=== PATIENT | female | born 1995 | race Caucasian/White ===

== ENCOUNTER 2017-04-29 15:35 | Outpatient (CLI) | payer MEDICAID ==
[~2017-04-29] VITALS: Ht 157.5 cm; Wt 61.8 kg
[2017-04-29] MEDS ORDERED: PRENAT PO (15:51)
[2017-04-29] MEDS ORDERED: FER325 PO (15:51)
[2017-04-29 15:52] VITALS: BP 107/65; PULSE 117; RESP 18; Ht 157.5 cm; Wt 61.8 kg
[2017-04-29 17:27] LABS: ADD SCAN DIFF NO
--- NOTE | 2017-04-29 17:30 | RADRPT ---
PROCEDURE: US biophysical profile. CLINICAL INDICATION: Contractions at 38 weeks gestational age. TECHNIQUE: Multiple sonographic images of the uterus were obtained. The images were revi ewed on a PACS workstation. COMPARISON: No prior studies are available for comparison. FINDINGS: There is a single live intrauterine gestation. heart rate is 171 beats per minute. The position is cephalic. The placenta is fundal grade III with no abruption or previa. The CRISTIAN is 9.8 cm. (Normal = 5-20 cm.) Breathing Movement: 2 Gross Body Movement: 2 Tone: 2 Qualitative Amniotic Fluid Volume: 2 TOTAL: 8 IMPRESSION: 1. The biophysical score is 8/8. RPTAT: QQ .Fredo Moeller MD, Date Time Electronically viewed and signed by .Fredo Moeller MD, on 04/29/2017 17:29 .R/
[2017-04-29 17:35] LABS: BASOPHILS % 0.3 % (0.0-2.0); EOSINOPHILS % 0.5 % (0.0-7.0); HEMOGLOBIN 12.6 g/dl (12.0-16.0); LYMPHOCYTES # 1.5 10^3/ul (0.8-2.9); LYMPHOCYTES % 19.1 % (18.0-55.0); MEAN CORPUSCULAR HEMOGLOBIN 30.9 pg (29.0-33.0); MEAN CORPUSCULAR VOLUME 88.2 fl (72.0-104.0); MEAN PLATELET VOLUME 9.8 fl (7.4-10.4); MONOCYTE # 0.5 10^3/ul (0.3-0.9); NEUTROPHIL # 5.9 10^3/ul (1.6-7.5); NEUTROPHILS % 73.6 % (30.0-74.0); PLATELET COUNT 198 10^3/UL (140-415); RED BLOOD COUNT 4.08 10^6/ul (4.20-5.40); RED CELL DISTRIBUTION WIDTH 15.9 % (11.5-14.5)
[2017-04-29 17:42] LABS: ADD UMIC YES; UR ASCORBIC ACID NEGATIVE (NEGATIVE); UR BACTERIA MODERATE /HPF (NONE SEEN); UR BILIRUBIN (Dip) NEGATIVE (NEGATIVE); UR BLOOD (Dip) NEGATIVE (NEGATIVE); UR CLARITY TURBID (CLEAR); UR COLOR AMBER (YELLOW); UR GLUCOSE (Dip) NEGATIVE (NEGATIVE); UR KETONES (Dip) NEGATIVE (NEGATIVE); UR LEUKOCYTE ESTERASE (Dip) 2+ Leu/ul (NEGATIVE); UR MUCUS MANY /HPF (NONE SEEN); UR NITRITE (Dip) NEGATIVE (NEGATIVE); UR RBC 3 /HPF (0-5); UR SPECIFIC GRAVITY (Dip) 1.026 (1.003-1.030); UR SQUAMOUS EPITHELIAL CELL MANY /HPF (FEW); UR TOTAL PROTEIN (Dip) 1+ mg/dl (NEGATIVE); UR UROBILINOGEN (Dip) NEGATIVE (NEGATIVE)
[2017-04-29 18:29] LABS: ALBUMIN 3.2 g/dl (3.3-4.9); ALBUMIN/GLOBULIN RATIO 1.1; BILIRUBIN,INDIRECT 0.2 mg/dl (0-1.1); BILIRUBIN,TOTAL 0.2 mg/dl (0.2-1.3); CALCIUM 8.8 mg/dl (8.4-10.2); CREATININE 0.43 mg/dl (0.44-1.00); POTASSIUM 3.7 mmol/L (3.5-5.1); TOTAL PROTEIN 6.1 g/dl (6.1-8.1)
--- NOTE | 2017-04-29 19:40 | CONS ---
Date/Time of Note Date/Time of Note DATE: 04/29/17 TIME: 19:31 Consultation Date/Type/Reason Admit Date/Time April 29, 2017 OB triage consult Reason for Consultation This patient is a 21 years old 2 para 1 living 1 whose previous delivery was spontaneous vaginal. Her EDC is 05/13/2017 which makes her 38 weeks and 0 days today. She came complaining of abdominal cramp and diarrhea since yesterday. On examination she is a well-developed well-nourished lady near term. Her abdomen is soft, rare contractions, heart tone is normal with good variability and acceleration no decelerations Her vital signs are generally normal, with the blood pressure 107/65, pulse rate 117,, respiration 18, temperature 98.5,, and oxygen saturation was 98% in room temperature. On a pelvic examination the cervix was about 1 fingertip dilated ,30% effaced, at -2 station ,no evidence of premature rupture of membranes. Laboratory Tests Test 04/29/17 15:40 04/29/17 17:10 Urine Color ASHLEY Urine Clarity TURBID Urine pH 5.0 Urine Specific [place] 1.026 Urine Ketones NEGATIVEmg/dL Urine Nitrite NEGATIVEmg/dL Urine Bilirubin NEGATIVEmg/dL Urine Urobilinogen NEGATIVEmg/dL Urine Leukocyte Esterase 2+Matias/ul Urine Microscopic RBC 3/HPF Urine Microscopic WBC > 182/HPF Urine Squamous Epithelial Cells MANY/HPF Urine Bacteria MODERATE/HPF Urine Mucus MANY/HPF Urine Hemoglobin NEGATIVEmg/dL Urine Glucose NEGATIVEmg/dL Urine Total Protein 1+mg/dl White Blood Count 8.010^3/ul Red Blood Count 4.0810^6/ul Hemoglobin 12.6g/dl Hematocrit 36.0% Mean Corpuscular Volume 88.2fl Mean Corpuscular Hemoglobin 30.9pg Mean Corpuscular Hemoglobin Concent 35.0g/dl Red Cell Distribution Width 15.9% Platelet Count 45340^3/UL Mean Platelet Volume 9.8fl Neutrophils % 73.6% Lymphocytes % 19.1% Monocytes % 6.0% Eosinophils % 0.5% Basophils % 0.3% Nucleated Red Blood Cells % 0.0/100WBC Neutrophils # 5.910^3/ul Lymphocytes # 1.510^3/ul Monocytes # 0.510^3/ul Eosinophils # 0.010^3/ul Basophils # 0.010^3/ul Nucleated Red Blood Cells # 0.010^3/ul Sodium Level 138mmol/L Potassium Level 3.7mmol/L Chloride Level 103mmol/L Carbon Dioxide Level 20mmol/L Anion Gap 19 Blood Urea Nitrogen 7mg/dl Creatinine 0.43mg/dl Glucose Level 153mg/dl Calcium Level 8.8mg/dl Total Bilirubin 0.2mg/dl Direct Bilirubin 0.00mg/dl Indirect Bilirubin 0.2mg/dl Aspartate Amino Transf (AST/SGOT) 24IU/L Alanine Aminotransferase (ALT/SGPT) 24IU/L Alkaline Phosphatase 177IU/L Total Protein 6.1g/dl Albumin 3.2g/dl Globulin 2.90g/dl Albumin/Globulin Ratio 1.10 Constitutional: No chills, No diaphoresis, No disoriented, No febrile, No improved, No no complaints, No other, No poor po, No requiring IVF, No requiring O2 Eyes: No discharge, No no complaints, No other, No pain, No redness, No visual change ENT: No bleeding, No congestion, No discharge, No dysphagia, No no complaints, No other, No pain, No sore throat Respiratory: No cough, No no complaints, No other, No pain, No pleuritic pain, No shortness of breath, No sputum, No wheezing Cardiovascular: No chest pain, No edema, No lightheadedness, No no complaints, No orthopenea, No other, No palpitations, No paroxysmal nocturnal dyspnea Gastrointestinal: No blood, No constipation, No decreased appetite, No diarrhea , No flatus, No nausea, No no complaints, No other, No pain, No passing stool, No vomiting Genitourinary: other (As I mentioned on the pelvic exam the cervix was only 1 fingertip 30% and -3 station), No bleeding, No discharge, No dysuria, No flank pain, No hematuria, No no complaints Musculoskeletal: No back pain, No bone/joint pain, No neck pain, No no complaints, No other, No restricted range of motion, No swelling Skin: No bruising, No erythema, No laceration, No no complaints, No other, No pruritis, No rash, No skin lesions Neurologic: No confusion, No dizziness, No focal-weakness, No headache, No no complaints, No other, No seizure, No syncope Endocrine: No dry skin, No no complaints, No other, No polydypsia, No polyuria , No temp intolerance Lymphatic: No adenopathy, No lymphadema, No no complaints, No other, No tender nodes Additional Comments On laboratory studies, her electrolytes were normal liver function tests, alkaline phosphorus, plus glucose level, BUN are all were within normal limits. H Her CBC also were normal ,WBC was 8000, platelets 1 98,000. Urinalysis also was reported negative except for slight elevation of 2+ Estrace ,. On ultrasound study ;the report was a single live intrauterine gestation with heart tone 171 bpm, in cephalic presentation, placenta was grade 3 and fundal ,her amniotic fluid index was 9.8 cm and biophysical profile 05/20 Disposition: with this finding patient was reassured and was discharged home to be followed in her infection control preventionist clinic to return to the OB floor in case of labor rupture of membrane or vaginal bleeding End of dictation Social History Smoking Status: Never smoker Exam/Review of Systems Vital Signs Vitals Vital Signs Date Time Temp Pulse Resp B/P Pulse Ox O2 Delivery O2 Flow Rate FiO2 04/29/17 15:52 98.5 117 18 107/65 97 Room Air Results Result Diagram: 04/29/17 1710 04/29/17 1710 Results 24 hrs Laboratory Tests Test 04/29/17 15:40 04/29/17 17:10 Urine Color ASHLEY Urine Clarity TURBID A Urine pH 5.0 Urine Specific [place] 1.026 Urine Ketones NEGATIVE Urine Nitrite NEGATIVE Urine Bilirubin NEGATIVE Urine Urobilinogen NEGATIVE Urine Leukocyte Esterase 2+ H Urine Microscopic RBC 3 Urine Microscopic WBC > 182 H Urine Squamous Epithelial Cells MANY A Urine Bacteria MODERATE Urine Mucus MANY A Urine Hemoglobin NEGATIVE Urine Glucose NEGATIVE Urine Total Protein 1+ H White Blood Count 8.0 Red Blood Count 4.08 L Hemoglobin 12.6 Hematocrit 36.0 L Mean Corpuscular Volume 88.2 Mean Corpuscular Hemoglobin 30.9 Mean Corpuscular Hemoglobin Concent 35.0 Red Cell Distribution Width 15.9 H Platelet Count 198 Mean Platelet Volume 9.8 # Neutrophils % 73.6 Lymphocytes % 19.1 Monocytes % 6.0 Eosinophils % 0.5 Basophils % 0.3 Nucleated Red Blood Cells % 0.0 Neutrophils # 5.9 Lymphocytes # 1.5 Monocytes # 0.5 Eosinophils # 0.0 Basophils # 0.0 Nucleated Red Blood Cells # 0.0 Sodium Level 138 Potassium Level 3.7 Chloride Level 103 Carbon Dioxide Level 20 L Anion Gap 19 H Blood Urea Nitrogen 7 Creatinine 0.43 L Glucose Level 153 Calcium Level 8.8 Total Bilirubin 0.2 Direct Bilirubin 0.00 Indirect Bilirubin 0.2 Aspartate Amino Transf (AST/SGOT) 24 Alanine Aminotransferase (ALT/SGPT) 24 Alkaline Phosphatase 177 H Total Protein 6.1 Albumin 3.2 L Globulin 2.90 Albumin/Globulin Ratio 1.10 ENEDINA FRANCIS MD Apr 29, 2017 19:40
--- NOTE | 2017-04-30 04:30 | TRIAGE ---
OB Triage Datetime Report Generated by CPN: 04/30/2017 04:30 Datetime: 04/29/2017 18:39 Stage of : OB Triage Maternal Assessment Level of Consciousness: Fully Conscious Labor Evaluation Frequency: 1-4 Monitor Mode: External Duration (sec)2399: 60-80 Quality: Mild Resting Tone [place]: Relaxed Contraction Comments: PT DENIES FEELING UC'S Heart Rate FHR Baseline Rate: 135 Monitor Mode: External US Variability: Moderate 6-25 bpm Accelerations: 15X15 Decelerations: None Pain Assessment Pain Scale: 0 Pain Goal: 3 Membrane Status: Intact Vaginal Bleeding: None Datetime: 04/29/2017 18:00 Stage of : OB Triage Maternal Assessment Level of Consciousness: Fully Conscious Labor Evaluation Frequency: 1-3 Monitor Mode: External Duration (sec)2399: 60-80 Quality: Mild Resting Tone [place]: Relaxed Contraction Comments: PT DENIES FEELING UC'S Heart Rate FHR Baseline Rate: 135 Monitor Mode: External US Variability: Moderate 6-25 bpm Accelerations: 15X15 Decelerations: None Pain Assessment Pain Scale: 0 Pain Goal: 3 Membrane Status: Intact Vaginal Bleeding: None Datetime: 04/29/2017 17:00 Stage of : OB Triage Maternal Assessment Level of Consciousness: Fully Conscious Labor Evaluation Frequency: 1-3 Monitor Mode: External Duration (sec)2399: 60-80 Quality: Mild Resting Tone [place]: Relaxed Contraction Comments: PT DENIES FEELING UC'S Heart Rate FHR Baseline Rate: 135 Monitor Mode: External US Variability: Moderate 6-25 bpm Accelerations: 15X15 Decelerations: None Category: Category I Pain Assessment Pain Scale: 0 Pain Goal: 3 Membrane Status: Intact Vaginal Bleeding: None Datetime: 04/29/2017 16:12 Vaginal Exam Dilatation (cms): 0.0 Exam By: FOROOHAR Cervix, Consistency: Soft Datetime: 04/29/2017 15:49 Assessment Type: Triage Maternal Assessment Level of Consciousness: Fully Conscious DTR's/Clonus: DTRs 2+; No Clonus Headache: Denies Blurred Vision: No Respiratory Effort: Unlabored; Regular Rhythm; Equal Expansion Breath Sounds, Left: Clear and Equal Breath Sounds, Right: Clear and Equal Nausea/Vomiting: Denies RUQ Epigastric Pain: Denies Lower Extremities Edema: None Degree: None Upper Extremities Edema: None Degree: None Facial Edema: None Fall Risk Assessment History of Falling: (0) No Secondary Diagnosis: (0) No Ambulatory Aid: (0) Bedrest/Nurse Assist IV Therapy: (0) No Gait: (0) Normal/Bedrest/Immobile Mental Status: (0) Oriented to Own Ability Fall Score: 0 Fall Risk Score Definition: No Risk: No action required Datetime: 04/29/2017 15:47 Time of Arrival: 04/29/2017 15:28 EGA: 38.0 Arrived By: Ambulatory Arrived From: Home Chief Complaint: PT C/O LEG CRAMPS AND DIARHEA X 3 DAYS Movement: Present Contractions: Denies/Absent Rupture of Membranes: Denies Vaginal Bleeding: None Vaginal Discharge: Denies Recent Sexual Intercouse: Denies Abdominal Trauma: Not Applicable Patient Complaints: None Time Provider Notified: 04/29/2017 16:00 Provider Notified: FOROOHAR Initial Plan: CBC/CMP/UA/BPP Datetime: 04/29/2017 15:46 Monitor Mode: External Monitor Mode: External US
== END 2017-04-29 19:50 | disposition home or self-care (01) ==
LOC: OBT 15:35 → L-D 15:37 → OBT 19:50
DX: O26.893 Other specified pregnancy related conditions, third trimester (principal); Z3A.38 38 weeks gestation of pregnancy; R19.7 Diarrhea, unspecified; R10.9 Unspecified abdominal pain
CPT/HCPCS: 76818; 80053; 81001; 85025; Z7500; G0463

== ENCOUNTER 2017-05-12 23:20 | Inpatient (IN) | payer MEDICAID ==
[~2017-05-12] VITALS: Ht 157.5 cm; Wt 63.1 kg
[~2017-05-12 23:20] MED LIST: FER325 PO; PRENAT PO
[2017-05-12 23:57] VITALS: BP 114/65
[2017-05-13] MEDS ORDERED: AMPICILLIN 2 GM/NS (PMX) 100 ML IV ONE (00:30)
[2017-05-13 00:34] VITALS: Ht 157.5 cm; Wt 63.1 kg
[2017-05-13] MEDS ORDERED: AMPICILLIN 2 GM/NS (PMX) 100 ML ONE (00:41)
[2017-05-13 00:42] LABS: BASOPHILS % 0.4 % (0.0-2.0); EOSINOPHILS % 0.5 % (0.0-7.0); HEMATOCRIT 36.3 % (37.0-47.0); LYMPHOCYTES # 2.1 10^3/ul (0.8-2.9); LYMPHOCYTES % 25.4 % (18.0-55.0); MEAN CORPUSCULAR HEMOGLOBIN 31.1 pg (29.0-33.0); MEAN CORPUSCULAR HGB CONC 35.8 g/dl (32.0-37.0); MEAN CORPUSCULAR VOLUME 86.8 fl (72.0-104.0); MEAN PLATELET VOLUME 10.3 fl (7.4-10.4); MONOCYTE # 0.6 10^3/ul (0.3-0.9); MONOCYTES % 7.1 % (0.0-13.0); NEUTROPHIL # 5.6 10^3/ul (1.6-7.5); NEUTROPHILS % 65.8 % (30.0-74.0); PLATELET COUNT 197 10^3/UL (140-415); RED BLOOD COUNT 4.18 10^6/ul (4.20-5.40); RED CELL DISTRIBUTION WIDTH 14.6 % (11.5-14.5); WHITE BLOOD COUNT 8.4 10^3/ul (4.8-10.8)
[2017-05-13 00:51] LABS: ADD UMIC YES; UR ASCORBIC ACID NEGATIVE (NEGATIVE); UR BACTERIA FEW /HPF (NONE SEEN); UR BILIRUBIN (Dip) NEGATIVE (NEGATIVE); UR BLOOD (Dip) 1+ mg/dL (NEGATIVE); UR CLARITY CLEAR (CLEAR); UR COLOR YELLOW (YELLOW); UR GLUCOSE (Dip) NEGATIVE (NEGATIVE); UR KETONES (Dip) NEGATIVE (NEGATIVE); UR LEUKOCYTE ESTERASE (Dip) 2+ Leu/ul (NEGATIVE); UR MUCUS FEW /HPF (NONE SEEN); UR NITRITE (Dip) NEGATIVE (NEGATIVE); UR RBC 7 /HPF (0-5); UR SPECIFIC GRAVITY (Dip) 1.025 (1.003-1.030); UR SQUAMOUS EPITHELIAL CELL FEW /HPF (FEW); UR TOTAL PROTEIN (Dip) NEGATIVE (NEGATIVE); UR UROBILINOGEN (Dip) NEGATIVE (NEGATIVE)
[2017-05-13] MEDS: LACTATED RINGER'S 1,000 ML IV SCH ×4 (00:52→17:44)
[2017-05-13 01:10] LABS: BARBITURATES Negative (NEGATIVE); BENZODIAZEPINES Negative (NEGATIVE); CANNABINOIDS Negative (NEGATIVE); COCAINE Negative (NEGATIVE); OPIATES Negative (NEGATIVE)
[2017-05-13 01:17] LABS: INR 0.95; PROTIME 12.7 Sec (12.2-14.2)
[2017-05-13 01:18] LABS: PARTIAL THROMBOPLASTIN TIME 28.1 Sec (25.0-35.0)
--- NOTE | 2017-05-13 01:31 | RADRPT ---
PROCEDURE: ULTRASOUND BIOPHYSICAL PROFILE CLINICAL INDICATION: 21-year-old female and labor for viability. TECHNIQUE: Multiple sonographic images were obtained in order to perform a biophysical profile The images were reviewed on a PACS workstation. COMPARISON: Ultrasound OB obtained concurrently. FINDINGS: There is a single viable intrauterine gestation. There is a vertex presentation. Cardiac activity i s present at 131 beats per minute. The placenta is fundal. The results of the biophysical profile a re as follows: breathing movement = 2/2 Gross body movement = 2/2 tone = 2/2 Qualitative amniotic fluid volume = 2/2 Amniotic fluid index equals 9.7 cm. This yields a biophysical profile score of 8/8. IMPRESSION: Biophysical profile score is 8/8. .Jj Villavicencio MD, MD Date Time Electronically viewed and signed by .Jj Villavicencio MD, on 05/13/2017 01:31 .M/
--- NOTE | 2017-05-13 01:34 | RADRPT ---
PROCEDURE: ULTRASOUND OBSTETRICAL CLINICAL INDICATION: 21-year-old female in labor for size and date determination. TECHNIQUE: Multiple sonographic images of the pelvis were obtained. The images were reviewed on a PACS workstation. COMPARISON: Ultrasound biophysical profile obtained concurrently. FINDINGS: The cervix is not well visualized.. There is a single viable intrauterine gestation. Cardiac activi ty is present with 171 beats per minute. There is a vertex presentation. Measurements were made in o rder to determine age. The results are as follows: BPD = 8.40 cm, HC = 31.75 cm, AC = 33.64 cm, FL = 6.41 cm. This yields and estimated gestational ag e of approximately 35 weeks 1 day. The estimated date of delivery is June 16, 2017. The EFW = 2783 +/- 417 g (6 lb 2 oz). The GP is 4%. The placenta is fundal. There is no evidence for an abruption or placenta previa. IMPRESSION: 1. Single viable intrauterine gestation of approximately 35 weeks 1 day with vertex presentation. The estimated date of delivery is June 16, 2017. 2. The estimated weight is 2783 +/- 417 g (6 lb 2 oz). The GP is 4%. .Jj Villavicencio MD, Date Time Electronically viewed and signed by .Jj Villavicencio MD, MD on 05/13/2017 01:34 .[place]/
[2017-05-13] MEDS ORDERED: LACTATED RINGER'S 1,000 ML IV SCH ×2 (03:56→08:48)
[2017-05-13] MEDS ORDERED: LACTATED RINGER'S 1,000 ML IV PRN (04:00)
[2017-05-13] MEDS ORDERED: METHYLERGONOVINE 0.2 MG INJ IM PRN ×2 (04:00→09:00)
[2017-05-13] MEDS ORDERED: OXYTOCIN 30 UNITS/LR 500 ML IV PRN ×2 (04:00→09:00)
[2017-05-13] MEDS ORDERED: CARBOPROST 250 MCG INJ IM PRN ×2 (04:00→09:00)
[2017-05-13] MEDS ORDERED: LIDOCAINE 1% (MPF) 30 ML INJ INJ PRN ×2 (04:00→09:00)
[2017-05-13] MEDS ORDERED: MISOPROSTOL 200 MCG TAB PR PRN ×2 (04:00→09:00)
[2017-05-13] MEDS: AMPICILLIN 1 GM/NS (PMX) 50 ML IV SCH ×5 (04:45→20:31)
--- NOTE | 2017-05-13 07:51 | HP ---
Date/Time of Note Date/Time of Note DATE: 05/13/17 TIME: 07:37 OB - History Hx of Present Free Text/Dictation 21 y.o EDC 05/15 at 39w4d presented triage with c/o uterine contractionssince am of 05/12/17 had limited care Hx of care by psychiatrist since 13y.o and hx of drug use membrane intact u.c q2-3 min initial VE 2-3/60% -3, mike in hr progressed to 3.5 admitted for expectant management. UDS in february neg GBS not known CRISTIAN 9.7 today Chief Complaint: uterine contractions Estimated Due Date: May 15, 2017 : 2 Para: 1 Spontaneous : 0 Therapeutic : 0 Care: Limited Care Ultrasounds: Normal mid trimester US, Other Medical Complications: None Past Family/Social History * Past Medical, Surgical, Family and Obstetric Histories reviewed from chart. Blood Type: O+ Rubella: immune RPR/VDRL: Negative GBS Status: Unknown HBsAG: Negative OB Admission Exam Vital Signs Vital Signs Vital Signs Date Time Temp Pulse Resp B/P Pulse Ox O2 Delivery O2 Flow Rate FiO2 05/12/17 23:57 98.3 69 21 114/65 100 Room Air Physical Exam HEENT: WNL Heart: Rhythm Normal Lungs: Clear, Equal Abdomen: WNL Extremities: Normal Reflexes: Normal Cervical Dilatation: 3cm Effacement: 50% Station: -3 Membranes: Intact Amniotic Fluid: Unevaluable Heart Rate: 130's Accelerations: Accelerations Present Decelerations: No Decelerations Varibility: Moderate Contractions on Admission: < 5 Minutes Apart Intensity: Moderate Last 72 hours Lab Results CBC & BMP 05/13/17 00:20 OB Assessment/Plan Reason for admission: active labor Plan: Expectant Management AIRAM WALDRON MD May 13, 2017 07:47
[2017-05-13] MEDS ORDERED: BUTORPHANOL 2 MG INJ IV PRN ×2 (09:00)
[2017-05-13] MEDS ORDERED: OXYTOCIN 30 UNITS/LR 500 ML IV SCH ×3 (09:00→17:00)
[2017-05-13] MEDS ORDERED: IBUPROFEN 600 MG TAB PO PRN (09:00)
[2017-05-13] MEDS ORDERED: MINERAL OIL LIGHT 10 ML VIAL TOP PRN (17:00)
[2017-05-13] MEDS ORDERED: FENTAnyl 2MCG/ML-ROPIV 0.2% 100 ML ONE (23:52)
[2017-05-14] MEDS: AMPICILLIN 1 GM/NS (PMX) 50 ML IV SCH (00:28)
[2017-05-14] MEDS ORDERED: ZOLPIDEM 5 MG TAB PO PRN ×2 (00:30→03:00)
[2017-05-14] MEDS ORDERED: KETOROLAC 30 MG INJ IV PRN (00:30)
[2017-05-14] MEDS ORDERED: DIPHENHYDRAMINE 50 MG INJ IV PRN (00:30)
[2017-05-14] MEDS: LACTATED RINGER'S 1,000 ML IV SCH (00:30)
[2017-05-14] MEDS ORDERED: HYDROmorphONE 1 MG/ML SYG IV PRN ×2 (00:30)
[2017-05-14] MEDS ORDERED: NALOXONE (0.4 MG/ML) INJ IV PRN (00:30)
[2017-05-14] MEDS ORDERED: ONDANSETRON 4 MG INJ IV PRN (00:30)
[2017-05-14] MEDS ORDERED: FENTAnyl 2MCG/ML-ROPIV 0.2% 100 ML BAG EPI SCH (00:30)
--- NOTE | 2017-05-14 01:29 | LDN ---
Date/Time of Note Date/Time of Note DATE: 05/14/17 TIME: 01:24 Delivery Summary normal vaginal delivery Weeks of Gestation 40w Placenta Delivered: Spontaneously Meconium: none Episiotomy: No Laceration repair: left inner labia minora 000ch gut Anesthesia type: Epidural Estimated blood loss: 50 Sponge & Needle done & correct: Yes All needle counts correct: Yes Any foreign bodies felt in the: No Problems: Infant Delivery Information Sex Sex: female Apgars 1 Minute: 9 5 Minute: 9 Suctioning Nose & mouth suctioned at aixa: Yes Delee suction performed: No Umbilical Cord Umbilical cord with: 3 Vessels Cord Blood was obtained: Yes Mother & Baby Disposition Disposition Mom & Baby to Maternity; Good: Yes Mom transferred to: Other (postppartum) Baby to NICU: No AIRAM WALDRON MD May 14, 2017 01:29
[2017-05-14 03:00] VITALS: BP 112/62
[2017-05-14] MEDS ORDERED: METHYLERGONOVINE 0.2 MG INJ IM PRN (03:00)
[2017-05-14] MEDS ORDERED: BENZOCAINE 20% 56 ML SPRAY TOP PRN (03:00)
[2017-05-14] MEDS ORDERED: MISOPROSTOL 200 MCG TAB PR PRN (03:00)
[2017-05-14] MEDS ORDERED: CARBOPROST 250 MCG INJ IM PRN (03:00)
[2017-05-14] MEDS ORDERED: OXYCODONE/ASPIRIN (4.88/325) TAB PO PRN (03:00)
[2017-05-14] MEDS ORDERED: LANOLIN 7 GM TUBE TOP PRN (03:00)
[2017-05-14] MEDS ORDERED: OXYTOCIN 30 UNITS/LR 500 ML IV PRN (03:00)
[2017-05-14] MEDS: WITCH HAZEL/GLYCERIN PAD PR PRN (03:32)
[2017-05-14 04:10] VITALS: BP 119/65
[2017-05-14] MEDS: IBUPROFEN 600 MG TAB PO SCH ×4 (05:26→23:35)
[2017-05-14 08:30] VITALS: BP 114/61
[2017-05-14] MEDS: SENNA/DOCUSATE NA (8.6MG/50MG) TAB PO SCH ×2 (09:19→21:10)
[2017-05-14 12:30] VITALS: BP 110/62
[2017-05-14] MEDS: OXYCODONE/ASPIRIN (4.88/325) TAB PO PRN (16:22)
[2017-05-14 16:30] VITALS: BP 110/77
[2017-05-14 20:00] VITALS: BP 100/53
[2017-05-15] VITALS: BP 106/69
[2017-05-15] MEDS: OXYCODONE/ASPIRIN (4.88/325) TAB PO PRN ×3 (02:15→20:03)
[2017-05-15 04:00] VITALS: BP 108/57
[2017-05-15] MEDS: IBUPROFEN 600 MG TAB PO SCH ×4 (05:30→23:30)
[2017-05-15 08:15] VITALS: BP 100/72
[2017-05-15] MEDS: SENNA/DOCUSATE NA (8.6MG/50MG) TAB PO SCH ×2 (08:30→20:02)
[2017-05-15 10:22] LABS: BASOPHILS % 0.4 % (0.0-2.0); EOSINOPHILS # 0.1 10^3/ul (0.0-0.5); EOSINOPHILS % 0.9 % (0.0-7.0); HEMATOCRIT 37.9 % (37.0-47.0); HEMOGLOBIN 13.3 g/dl (12.0-16.0); LYMPHOCYTES # 2.9 10^3/ul (0.8-2.9); LYMPHOCYTES % 37.5 % (18.0-55.0); MEAN CORPUSCULAR HEMOGLOBIN 31.1 pg (29.0-33.0); MEAN CORPUSCULAR HGB CONC 35.1 g/dl (32.0-37.0); MEAN CORPUSCULAR VOLUME 88.8 fl (72.0-104.0); MEAN PLATELET VOLUME 10.4 fl (7.4-10.4); MONOCYTE # 0.5 10^3/ul (0.3-0.9); MONOCYTES % 6.7 % (0.0-13.0); NEUTROPHIL # 4.2 10^3/ul (1.6-7.5); NEUTROPHILS % 53.9 % (30.0-74.0); PLATELET COUNT 181 10^3/UL (140-415); RED BLOOD COUNT 4.27 10^6/ul (4.20-5.40); RED CELL DISTRIBUTION WIDTH 14.7 % (11.5-14.5); WHITE BLOOD COUNT 7.8 10^3/ul (4.8-10.8)
--- NOTE | 2017-05-15 12:53 | PN ---
Date/Time of Note Date/Time of Note DATE: 05/15/17 TIME: 12:51 OB Subjective Subjective Subjective Post day 1 Doing Well Afebrile Ambulatory Chest Clear Breasts are soft , Nipples are intact Abdomen is soft Fundus is firm Moderate amount of lochia perineum is healing well No calf tenderness No ankle edema Laboratory Tests Test 05/15/17 09:48 White Blood Count 7.810^3/ul Red Blood Count 4.2710^6/ul Hemoglobin 13.3g/dl Hematocrit 37.9% Mean Corpuscular Volume 88.8fl Mean Corpuscular Hemoglobin 31.1pg Mean Corpuscular Hemoglobin Concent 35.1g/dl Red Cell Distribution Width 14.7% Platelet Count 38419^3/UL Mean Platelet Volume 10.4fl Neutrophils % 53.9% Lymphocytes % 37.5% Monocytes % 6.7% Eosinophils % 0.9% Basophils % 0.4% Nucleated Red Blood Cells % 0.0/100WBC Neutrophils # 4.210^3/ul Lymphocytes # 2.910^3/ul Monocytes # 0.510^3/ul Eosinophils # 0.110^3/ul Basophils # 0.010^3/ul Nucleated Red Blood Cells # 0.010^3/ul Current Medications Medications (Trade) Dose Ordered Sig/Jackeline Route PRN Reason Start Time Stop Time Status Last Admin Dose Admin Lactated Ringer's 1,000 ml @ 125 mls/hr Q8H IV 05/12/17 23:56 05/14/17 02:37 DC 05/14/17 00:30 Ampicillin 100 ml @ 100 mls/hr ONCE ONCE IV 05/13/17 00:30 05/13/17 01:29 DC 05/13/17 01:13 Ampicillin 50 ml @ 100 mls/hr Q4H IV 05/13/17 04:30 05/14/17 02:37 DC 05/14/17 00:28 Ampicillin 100 ml @ ud STK-MED ONCE .ROUTE 05/13/17 00:41 05/13/17 00:42 DC Lactated Ringer's (Lr) 1,000 ml @ 125 mls/hr Q8H IV 05/13/17 03:56 05/13/17 16:45 DC Lidocaine 30 ml 30 ml ONCE PRN INJ EPISIOTOMY/TEARING 05/13/17 04:00 05/14/17 02:39 DC Lactated Ringer's 1,000 ml @ 2,000 mls/hr Q30M PRN IV PRE-EPIDURAL BOLUS 05/13/17 04:00 05/13/17 23:37 Oxytocin/Lactated Ringer's 500 ml @ 0 mls/hr ONCE PRN IV For Hemorrhage Management 05/13/17 04:00 05/13/17 09:04 DC Methylergonovine Maleate (Methergine) 0.2 mg ONCE PRN IM VAGINAL BLEEDING 05/13/17 04:00 05/13/17 09:04 DC Carboprost Tromethamine (Hemabate) 250 mcg ONCE PRN IM VAGINAL BLEEDING 05/13/17 04:00 05/13/17 09:04 DC Misoprostol (Cytotec) 1,000 mcg ONCE PRN MI VAGINAL BLEEDING 05/13/17 04:00 05/13/17 09:04 DC Ibuprofen 600 mg 600 mg ONCE PRN PO Mild Pain (Pain Score 1-3) 05/13/17 09:00 05/14/17 02:37 DC Lactated Ringer's (Lr) 1,000 ml @ 125 mls/hr Q8H IV 05/13/17 08:48 05/13/17 16:50 DC Lidocaine 30 ml 30 ml ONCE PRN INJ EPISIOTOMY/TEARING 05/13/17 09:00 05/14/17 02:37 DC Oxytocin/Lactated Ringer's 500 ml @ 0 mls/hr ONCE PRN IV For Hemorrhage Management 05/13/17 09:00 05/14/17 02:37 DC Methylergonovine Maleate (Methergine) 0.2 mg ONCE PRN IM VAGINAL BLEEDING 05/13/17 09:00 05/14/17 02:38 DC Carboprost Tromethamine (Hemabate) 250 mcg ONCE PRN IM VAGINAL BLEEDING 05/13/17 09:00 05/14/17 02:38 DC Misoprostol 1000 mcg 1,000 mcg ONCE PRN MI VAGINAL BLEEDING 05/13/17 09:00 05/14/17 02:38 DC Oxytocin/Lactated Ringer's 500 ml @ 125 mls/hr ONCE -MAY REPEAT X1 IV 05/13/17 09:00 05/14/17 02:38 DC 05/14/17 01:11 Oxytocin/Lactated Ringer's 500 ml @ 125 mls/hr ONCE IV 05/13/17 09:00 05/14/17 02:38 DC 05/14/17 01:45 Butorphanol Tartrate (Stadol) 1 mg Q2H PRN IV PAIN 05/13/17 09:00 05/14/17 02:38 DC Butorphanol Tartrate 2 mg 2 mg Q2H PRN IV PAIN 05/13/17 09:00 05/14/17 02:38 DC Oxytocin/Lactated Ringer's 500 ml @ 0 mls/hr Q0M IV 05/13/17 17:00 05/14/17 02:38 DC 05/13/17 16:44 Mineral Oil ONCE PRN TOP AT DELIVERY 05/13/17 17:00 05/14/17 02:38 DC Fentanyl/ Ropivacaine 100 ml @ ud STK-MED ONCE .ROUTE 05/13/17 23:52 05/13/17 23:53 DC Naloxone HCl (Narcan) 0.1 mg Q2M PRN IV FOR RESP RATE 8 OR LESS 05/14/17 00:30 05/14/17 02:38 DC Ketorolac Tromethamine (Toradol) 30 mg Q6H PRN IV PAIN 05/14/17 00:30 05/14/17 02:38 DC Hydromorphone HCl (Dilaudid) 0.2 mg Q3H PRN IV PAIN LEVEL 1-5 05/14/17 00:30 05/14/17 02:38 DC Hydromorphone HCl (Dilaudid) 0.4 mg Q3H PRN IV PAIN LEVEL 6-10 05/14/17 00:30 05/14/17 02:38 DC Diphenhydramine HCl (Benadryl) 25 mg Q6H PRN IV ITCHING 05/14/17 00:30 05/14/17 02:38 DC Ondansetron HCl (Zofran Inj) 4 mg Q6H PRN IV NAUSEA AND/OR VOMITING 05/14/17 00:30 05/14/17 02:38 DC Zolpidem Tartrate (Ambien) 5 mg HS MAY REPEAT X 1 PRN PO INSOMNIA 05/14/17 00:30 05/14/17 02:38 DC Fentanyl/ Ropivacaine 100 ml EPIDURAL INFUSION EPI 05/14/17 00:30 05/14/17 02:38 DC Ibuprofen (Motrin) 600 mg Q6 PO 05/14/17 06:00 05/15/17 11:46 Oxycodone/Aspirin (Percodan) 1 tab Q3H PRN PO PAIN LEVEL 1-5 05/14/17 03:00 05/15/17 02:15 Oxycodone/Aspirin (Percodan) 2 tab Q3H PRN PO PAIN LEVEL 6-10 05/14/17 03:00 Zolpidem Tartrate (Ambien) 5 mg QHS PRN PO INSOMNIA 05/14/17 03:00 Senna/Docusate Sodium (Senokot-S) 1 tab BID PO 05/14/17 09:00 05/15/17 08:30 Witch Rebecca/ Glycerin (Tucks Pads) 1 pad BEDSIDE MEDICATION PRN MI HEMORRHOID/EPISIOTMY PAIN 05/14/17 03:00 05/14/17 03:32 Benzocaine (Dermoplast [place]) 1 spray BEDSIDE MEDICATION PRN TOP HEMORRHOID/EPISIOTMY PAIN 05/14/17 03:00 05/14/17 03:33 Lanolin ([id number]-P-[id number]) 1 applic BEDSIDE MEDICATION PRN TOP BEDSIDE FOR MAME TO NIPPLES 05/14/17 03:00 05/14/17 03:33 Diphtheria/ Tetanus/Acell Pertussis 0.5 ml 0.5 ml ONCE ONCE IM* 05/16/17 09:00 05/16/17 09:01 Oxytocin/Lactated Ringer's 500 ml @ 0 mls/hr ONCE PRN IV For Hemorrhage Management 05/14/17 03:00 Methylergonovine Maleate (Methergine) 0.2 mg ONCE PRN IM VAGINAL BLEEDING 05/14/17 03:00 Carboprost Tromethamine (Hemabate) 250 mcg ONCE PRN IM VAGINAL BLEEDING 05/14/17 03:00 Misoprostol (Cytotec) 1,000 mcg ONCE PRN MI VAGINAL BLEEDING 05/14/17 03:00 New born is doing well, Breast feeding ENEDINA FRANCIS MD May 15, 2017 12:53
[2017-05-15 16:47] VITALS: BP 104/53
[2017-05-15 20:00] VITALS: BP 96/67
--- NOTE | 2017-05-15 21:31 | PN ---
Date/Time of Note Date/Time of Note DATE: 05/15/17 TIME: 21:29 OB Subjective Subjective Subjective no c/o OB Objective Objective Objective vss afebrile fundus firm lochia min calf neg for tenderness OB Assessment/Plan Other Assessment: stable post vaginal delivery#1 Other plan: d/s home in am AIRAM WALDRON MD May 15, 2017 21:31
[2017-05-16] MEDS: WITCH HAZEL/GLYCERIN PAD PR PRN (00:43)
--- NOTE | 2017-05-16 04:26 | PD.PPDC ---
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
[2017-05-16 04:31] VITALS: BP 94/57
[2017-05-16] MEDS: IBUPROFEN 600 MG TAB PO SCH ×2 (06:05→11:29)
[2017-05-16 08:30] VITALS: BP 110/69
[2017-05-16] MEDS: SENNA/DOCUSATE NA (8.6MG/50MG) TAB PO SCH (08:47)
[2017-05-16] MEDS ORDERED: DIPHTH/TET/ACEL PERTUSS (ADULT) 0.5 ML VIAL IM* ONE (09:00)
--- NOTE | 2017-05-16 09:26 | DS ---
Date/Time of Note Date/Time of Note DATE: 05/16/17 TIME: 09:25 Obstetrical Discharge Record Final Diagnosis Final Diagnosis: Term delivered Vaginal Delivery Obstetrical Delivery: Spontaneous, Laceration, Repaired Complications Augmentation: Yes Condition on Discharge Physical Assessment Last Vitals: vss afebrile Voiding: Yes Bowel Movement: Yes Breast: Soft, non-tender Fundus: Firm Calf Tenderness: No Patient Condition: Stable AIRAM WALDRON MD May 16, 2017 09:26
--- NOTE | 2017-05-16 11:27 | QN ---
Documentation Comment PPD#2is stable afebrile No VB +BM +voids VS stable Gen NAD Abd soft NT ND Uterus Gravid Genitalia No blood at perinium --->discharge plan PRAFUL ELLIS M.D. May 16, 2017 11:27
--- NOTE | 2017-05-16 11:28 | DS ---
Date/Time of Note Date/Time of Note DATE: 05/16/17 TIME: 11:27 Discharge Summary Admission/Discharge Info Admit Date/Time May 13, 2017 at 03:30 Discharge Date/Time Discharge Diagnosis Patient Condition: Good Procedures vaginal delivery Hospital Course uneventful Home Meds Reported Medications Ferrous Sulfate* (Ferrous Sulfate*) 325 Mg Tabec, 325 MG PO DAILY, TAB 04/29/17 Multivit/Min/Fol Ac/Iron/Pren* ( S*) 1 Tab Tab, 1 TAB PO DAILY, TAB 04/29/17 Primary Care Provider PRAFUL ELLIS M.D. May 16, 2017 11:28
== END 2017-05-16 16:20 | disposition home or self-care (01) | DRG 775 ==
LOC: L-D 23:20 → OBT 23:20 → L-D 05-13 03:30 → PP1 05-14 02:47
PROVIDERS: ADMIT Obstetrics & Gynecology; ATTEND Obstetrics & Gynecology
PROC: 10E0XZZ Delivery of Products of Conception, External Approach (ICD-10-PCS; principal; 2017-05-14)
PROC: 0UQMXZZ Repair Vulva, External Approach (ICD-10-PCS; 2017-05-14)
PROC: 3E033VJ Introduction of Other Hormone into Peripheral Vein, Percutaneous Approach (ICD-10-PCS; 2017-05-14)
DX: O48.0 Post-term pregnancy (principal); O70.0 First degree perineal laceration during delivery; Z3A.40 40 weeks gestation of pregnancy; Z37.0 Single live birth
CPT/HCPCS: 36415; 62319; 76815; 76818; 80307; 81001; 85025; 85610; 85730; 86592; 86850; 86900; 86901; 87340; 90715; 96360; 96361; 96367; A4310; G0463; J0290; J2590; J3010; J7120

== ENCOUNTER 2017-10-09 18:28 | Emergency (ER) | END 2017-10-09 20:30 | disposition home or self-care (01) ==

== ENCOUNTER 2018-08-06 21:06 | Emergency (ER) | END 2018-08-06 23:44 | disposition home or self-care (01) ==